=== PATIENT | male | born 1995 | race Caucasian/White ===

== ENCOUNTER 2022-09-20 21:33 | Outpatient (CLI) | payer OTHER | END 2022-09-20 23:59 | disposition critical access hospital (66) | LOC: EMS 21:33 | DX: R07.9 Chest pain, unspecified (principal) | CPT/HCPCS: A0425; A0429 ==

== ENCOUNTER 2022-09-20 21:59 | Emergency (ER) | payer OTHER ==
[2022-09-20 22:29] LABS: BASOPHILS # (AUTO) 0.1 10^3/uL (0.0-0.1); BASOPHILS % (AUTO) 1.1 %; EOSINOPHILS # (AUTO) 0.3 10^3/uL (0.0-0.7); EOSINOPHILS % (AUTO) 4.2 %; HCT - HEMATOCRIT 42.6 % (42.0-52.0); LYMPHOCYTES # (AUTO) 1.7 10^3/uL (1.5-3.5); LYMPHOCYTES % (AUTO) 26.6 %; MEAN CORPUSCULAR HEMOGLOBIN 27.6 pg (27.0-31.0); MEAN CORPUSCULAR HGB CONC 32.9 g/dL (32.0-36.0); MEAN CORPUSCULAR VOLUME 83.9 fL (80.0-94.0); MEAN PLATELET VOLUME 10.6 fL (7.4-11.4); MONOCYTES # (AUTO) 0.5 10^3/uL (0.0-1.0); MONOCYTES % (AUTO) 8.5 %; NEUTROPHILS # (AUTO) 3.7 10^3/uL (1.5-6.6); NEUTROPHILS % (AUTO) 59.4 %; PLT - PLATELET COUNT 256 10^3/uL (130-450); RED BLOOD COUNT 5.08 10^6/uL (4.70-6.10); RED CELL DISTRIBUTION WIDTH 13.1 % (12.0-15.0); WHITE BLOOD COUNT 6.2 x10^3/uL (4.8-10.8)
--- NOTE | 2022-09-20 22:34 | XRAY Report ---
PROCEDURE: Chest 1 View X-Ray INDICATIONS: Chest Pain TECHNIQUE: One view of the chest was acquired. COMPARISON: None. FINDINGS: Surgical changes and devices: None. Lungs and pleura: No pleural effusions or pneumothorax. Lungs are clear. Mediastinum: Mediastinal contours appear normal. Heart size is normal. Bones and chest wall: No suspicious bony lesions. Overlying soft tissues appear unremarkable. IMPRESSION: No acute radiographic abnormality. Reviewed by: Luisito Melissa MD on 09/20/2022 10:32 PM PDT Approved by: Luisito Melissa MD on 09/20/2022 10:32 PM PDT Station ID: [id number]
[2022-09-20 22:43] LABS: ALBUMIN/GLOBULIN RATIO 1.4 (1.0-2.2); BILIRUBIN,TOTAL 0.5 mg/dL (0.2-1.0); CALCIUM 8.5 mg/dL (8.5-10.3); POTASSIUM 3.4 mmol/L (3.5-5.0); TOTAL PROTEIN 6.9 g/dL (6.7-8.2)
--- NOTE | 2022-09-20 23:44 | ED Physician Documentation ---
PD HPI CHEST PAIN - Stated complaint Stated Complaint: CHEST PX - Chief complaint Chief Complaint: Cardiac PD PAST MEDICAL HISTORY - Allergies Allergies/Adverse Reactions: Allergies Allergy/AdvReac Type Severity Reaction Status Date / Time No Known Drug Allergies Allergy Verified 09/20/22 22:10 Results - Vitals Vitals: Vital Signs - 24 hr 09/20/22 09/20/22 22:06 22:49 Temperature 36.8 C Heart Rate 72 61 Respiratory 18 15 Rate Blood Pressure 149/78 H 129/59 L O2 Saturation 97 98 Oxygen O2 Source Room air - Labs Labs: Laboratory Tests 09/20/22 09/20/22 09/20/22 22:26 22:26 22:26 WBC 6.2 RBC 5.08 Hgb 14.0 Hct 42.6 MCV 83.9 MCH 27.6 MCHC 32.9 RDW 13.1 Plt Count 256 MPV 10.6 Neut # (Auto) 3.7 Lymph # (Auto) 1.7 [place] # (Auto) 0.5 Eos # (Auto) 0.3 Baso # (Auto) 0.1 Absolute Nucleated RBC 0.00 Nucleated RBC % 0.0 Sodium 137 Potassium 3.4 L Chloride 109 Carbon Dioxide 23 Anion Gap 5.0 L BUN 18 Creatinine 1.0 Estimated GFR (MDRD) 91 Glucose 138 H Calcium 8.5 Total Bilirubin 0.5 AST 24 ALT 37 Alkaline Phosphatase 49 Troponin I High Sens < 2.3 L Total Protein 6.9 Albumin 4.0 Globulin 2.9 Albumin/Globulin Ratio 1.4 Lipase 36 PD Medical Decision Making - ED course ED course: 26-year-old man, previously healthy, presents with left anterior chest pain worse with inspiration at 2100, 5 out of 10 improving status post 324 of aspirin. Denies nausea, vomiting, diaphoresis, fever, cough. Patient does use a vape but is a non-smoker of cigarettes. No family history of cardiac disease. 26-year-old male presents with atypical chest pain benign appearance on physical exam with normal vital signs. EKG Done at 22: 05 normal sinus rhythm At 70 with normal intervals and benign early repolarization. Disagree with computer that suggests acute pericarditis.CBC, abdominal panel, troponin performed with unremarkable results. Chest x-ray performed and interpreted independently by myself and outside radiologist as no evidence of cardiopulmonary disease. PERC negative. Heart score 0. low risk for [place] or PE. Discussed with the patient and we will plan [place] Return precautions given. Departure - Departure Disposition: 01 Home, Self Care Clinical Impression: Chest pain Condition: Stable Instructions: ED Chest Pain NonCardiac Comments: You are seen in the emergency department for chest pain. Your lab work, EKG, and chest x-ray uncovered no emergent cause for your symptoms. [place] Return to the emergency department for new or worsening symptoms or other concerns
[2022-09-20 23:53] VITALS: BP 137/57
== END 2022-09-20 23:53 | disposition home or self-care (01) ==
LOC: ED 21:59
DX: R07.9 Chest pain, unspecified (principal)
CPT/HCPCS: 36415; 80053; 83690; 84484; 85025; 93005; 99283; 99284